=== PATIENT | male | born 1965 | race Caucasian/White ===

== ENCOUNTER 2017-11-19 23:23 | Emergency (ER) | payer OTHER ==
[~2017-11-19] VITALS: Ht 175.3 cm; Wt 65.8 kg
[~2017-11-19 23:23] MED LIST: flexeril PO
[2017-11-20 00:14] LABS: ABSOLUTE BASOPHIL COUNT 0 /CUMM (0.0-0.2); ABSOLUTE EOSINOPHIL COUNT 0.2 /CUMM (0.0-0.7); ABSOLUTE GRANULOCYTE CT 4.2 /CUMM (1.4-6.5); ABSOLUTE LYMPH COUNT 2.9 /CUMM (1.2-3.4); ABSOLUTE MONOCYTE COUNT 0.7 /CUMM (0.10-0.60); BASOPHIL % 0.5 % (0.0-2.0); EOSINOPHIL % 2.4 % (0-5); GRANULOCYTE % 52.4 % (42.2-75.2); HEMATOCRIT 46.3 % (42-52); MEAN CORPUSCULAR HGB CONC 34.1 G/DL (33.0-37.0); MEAN PLATELET VOLUME 8.7 FL (7.4-10.4); PLATELET COUNT 236 /CUMM (130-400); RBC DISTRIBUTION WIDTH 13.5 % (11.5-14.5); RED BLOOD CELL CT 5.26 /CUMM (4.70-6.10)
--- NOTE | 2017-11-20 00:31 | RADIOLOGY REPORT ---
EXAMINATION: CHEST 2 VIEWS CLINICAL INFORMATION: Chest pain. COMPARISON: None. TECHNIQUE: PA and lateral views of the chest were obtained. FINDINGS: The cardiac silhouette is not enlarged. The mediastinal and hilar contours are unremarkable. There are neither pleural effusions nor pneumothoraces. There are no consolidations. The lungs are hyperinflated. There is mild degenerative change within the thoracic spine. The osseous structures are otherwise unremarkable. IMPRESSION: No evidence for acute disease. Lung hyperinflation.
--- NOTE | 2017-11-20 00:43 | ED CARDIAC/CP/PALPITATIONS ---
History of Present Illness General Chief Complaint: Palpitations Stated Complaint: PT C/O "RAPID HEART RATE" FAMILY CARDIAC HX Source: patient, family, old records Exam Limitations: no limitations Vital Signs & Intake/Output Vital Signs & Intake/Output Vital Signs Date Time Temp Pulse Resp B/P B/P Pulse O2 O2 Flow FiO2 Mean Ox Delivery Rate 11/20 0151 100 Room Air 11/20 0111 68 18 132/88 98 Room Air 11/20 0110 98.0 68 18 132/88 11/20 0108 70 18 132/86 98 Room Air 11/20 0050 74 20 135/87 97 Room Air 11/19 2352 98.0 80 16 172/89 99 Room Air Room Air ED Intake and Output 11/20 0000 11/19 1200 Intake Total 0 Output Total Balance 0 Intake, Oral 0 Patient 145 lb Weight Allergies Coded Allergies: No Known Allergies (11/19/17) Reconcile Medications [flexeril] 5 MG 1 TAB PO TID PRN PAIN Core Measure Meds Pre-Hospital aspirin Triage Note: PT TO TRIAGE AFTER EKG FOR PALPATATIONS STARTING AROUND 10PM. PT STATES HE WAS LAYING DOWN WHILE IT STARTED. C/O LEFT SIDED CHEST PRESSURE. DENIES SOB. SKIN WARM AND DRY. PT IS IN NO RESPIRATORY DISTRESS. Triage Nurses Notes Reviewed? yes Onset: Just prior to arrival Duration: minute(s):, better, constant, gone now Timing: recent history Quality/Severity: moderate, pressure Location: substernal Radiation: no radiation Activities at Onset: rest Prior Chest Pain/Card Workup: echocardiography, stress test Modifying Factors: Improves With: rest. Nitro Today/Relief: no nitro taken today Aspirin Today: provided at home, 325 mg x 2 Associated Symptoms: dizziness, nausea/vomiting HPI: 1 week Prior to admission patient was vacationing in [place] [employer] [place] [employer]. He reports during his hikes he would become fatigued with chest pressure resolving with rest. Prior to admission while at rest he developed substernal chest pressure palpitations dizziness that has now gone. He denies fever chills nausea vomiting diarrhea abdominal pain shortness of breath headache dysuria rash bleeding. Past History Travel History Traveled to [place] past 21 day No Medical History Any Pertinent Medical History? see below for history Cardiovascular: hypertension, hyperlipidemia Surgical History Surgical History: N Psychosocial History What is your primary language Croatian Tobacco Use: Never used Family History Hx Contributory? Yes Review of Systems Review of Systems Constitutional: Reports: see HPI, weakness. EENTM: Reports: no symptoms. Respiratory: Reports: no symptoms. Cardiovascular: Reports: see HPI, chest pain, palpitations. GI: Reports: no symptoms. Genitourinary: Reports: no symptoms. Musculoskeletal: Reports: no symptoms. Skin: Reports: no symptoms. Neurological/Psychological: Reports: no symptoms. Hematologic/Endocrine: Reports: no symptoms. Immunologic/Allergic: Reports: no symptoms. All Other Systems: Reviewed and Negative Physical Exam Physical Exam General Appearance: well developed/nourished, alert, awake, anxious, mild distress Head: atraumatic, normal appearance Eyes: Bilateral: normal appearance, PERRL, EOMI. Ears, Nose, Throat: normal pharynx, normal ENT inspection, hearing grossly normal Neck: normal inspection, supple, full range of motion, no midline tenderness Respiratory: normal breath sounds, chest non-tender, no respiratory distress, quiet respiration, lungs clear Cardiovascular: regular rate/rhythm, normal peripheral pulses, norml femoral pulses equa Peripheral Pulses: 4+ carotid (R), 4+ carotid (L) Gastrointestinal: normal bowel sounds, soft, non-tender, no organomegaly Back: normal inspection, normal range of motion Extremities: normal inspection, normal capillary refill, normal range of motion, no edema Neurologic/Psych: no motor/sensory deficits, awake, alert, oriented x 3, normal gait, normal mood/affect, 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 Skin: intact, normal color, warm/dry Lymphatic: no anterior cervical joselin Core Measures ACS in differential dx? Yes CVA/TIA Diagnosis No Sepsis Present: No Sepsis Focused Exam Completed? No Progress Differential Diagnosis: AMI, costochondritis, hyperkalemia, hypovolemia, hyperthyroid, pneumonia Plan of Care: Orders Procedure Date/time Status TROPONIN LEVEL 11/20 0300 Complete EKG 11/20 0300 Active Add-on Test (ER Only) 11/19 2355 Active TSH REFLEX 11/19 2340 Complete TROPONIN LEVEL 11/19 2340 Complete MAGNESIUM 11/19 2340 Complete COMPREHENSIVE METABOLIC PANEL 11/19 2340 Complete CBC WITHOUT DIFFERENTIAL 11/19 2340 Complete EKG 11/19 2325 Active Current Medications Sig/Kortney Start time Last Medication Dose Stop Time Status Admin Aspirin 162 MG ONCE ONE 11/20 0030 CAN (Aspirin) 11/20 0031 Laboratory Tests 11/20/17 0250: Troponin I < 0.01 11/20/17 0004: Anion Gap 10, Estimated GFR > 60, BUN/Creatinine Ratio 17.8, Glucose 110 H, Calcium 9.5, Magnesium 2.0, Total Bilirubin 0.6, AST 16 L, ALT 30, Alkaline Phosphatase 66, Troponin I < 0.01, Total Protein 6.7, Albumin 4.3, Globulin 2.4, Albumin/Globulin Ratio 1.8, TSH &T3 &Free T4 Intrp 3.760, CBC w Diff NO MAN DIFF REQ, RBC 5.26, MCV 88.0, MCH 30.0, MCHC 34.1, RDW 13.5, MPV 8.7, Gran % 52.4, Lymphocytes % 36.5, Monocytes % 8.2, Eosinophils % 2.4, Basophils % 0.5, Absolute Granulocytes 4.2, Absolute Lymphocytes 2.9, Absolute Monocytes 0.7 H, Absolute Eosinophils 0.2, Absolute Basophils 0 Diagnostic Imaging: Viewed by Me: Radiology Read. Discussed w/RAD: Radiology Read. CXR Impression: No evidence for acute disease. Lung hyperinflation. Initial ED EKG: normal axis, normal intervals, normal p-waves, normal QRS complex, normal sinus rhythm, no ST T wave changes Repeat EKG: unchanged Rhythm Strip: normal sinus rhythm Departure Departure Time of Disposition: 402 Disposition: HOME OR SELF CARE Condition: Stable Clinical Impression Primary Impression: Chest pain syndrome Referrals: Michelle BORRERO,Paz (PCP/Family) Nina BORRERO,Jun Hardy Additional Instructions: Aspirin daily Departure Forms: Customer Survey General Discharge Information Critical Care Note Critical Care Note Critical Care Time: 30-74 min (35)
[2017-11-20 04:09] VITALS: BP 118/81
== END 2017-11-20 04:10 ==
LOC: ERH 23:23
PROVIDERS: Emergency Medicine
DX: R07.89 Other chest pain (principal)
CPT/HCPCS: 71046; 93005; 93010; 96374; 99291